=== PATIENT | female | born 1995 | race Caucasian/White ===

== ENCOUNTER 2017-04-29 19:58 | Emergency (ER) | payer OTHER ==
[2017-04-29 20:04] VITALS: BP 103/54; PULSE 115; BMI 27.6
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
[2017-04-29 22:33] LABS: HIV 1 & 2 AB NEGATIVE; HIV 1 AGp24 NEGATIVE
[2017-05-04 00:12] LABS: HEP B SURFACE AB Reactive (.)
== END 2017-04-29 22:55 ==
LOC: JERFT 19:58
DX: F91.1 Conduct disorder, childhood-onset type (principal); G40.509 Epileptic seizures related to external causes, not intractable, without status epilepticus; F73 Profound intellectual disabilities
CPT/HCPCS: 36415; 86704; 86706; 86708; 86803; 87340; 87389; 99281-25

== ENCOUNTER 2017-09-25 17:37 | Emergency (ER) | payer OTHER ==
[2017-09-25 17:45] VITALS: BMI 29.9
--- NOTE | 2017-09-25 19:14 | PDOC ---
History of Present Illness - General History Source: Care Provider Exam Limitations: Other (nonverbal, autistic) - History of Present Illness Initial Comments: 09/25/17 19:40 The patient is a 22 year old female, with a significant past medical history of intellectual delay, autism, aggression, seizure disorder, who presents to the emergency department with caregiver via ems from [facility] for evaluation of bilateral lower extremity swelling today and a 3 pound weight gain in 10 days. The patient is unable to provide history. PCP: Dr. Mckeon <Azeb Chavez - Last Filed: 09/25/17 19:39> <Sarah Craig - Last Filed: 09/25/17 21:20> - General Chief Complaint: Edema Stated Complaint: ALLERGIC REACTION Time Seen by Provider: 09/25/17 17:51 Past History <Azeb Chavez - Last Filed: 09/25/17 19:39> - Past Medical History COPD: No Diabetes: Yes Psychiatric Problems: No (INTELLECTUAL DISABLED,aggression) Seizures: Yes Thyroid Disease: Yes - Immunization History Immunization Up to Date: Yes - Suicide/Smoking/Psychosocial Hx Smoking History: Never smoked Have you smoked in the past 12 months: No Information on smoking cessation initiated: No Hx Alcohol Use: No Drug/Substance Use Hx: No Substance Use Type: None <Sarah Craig - Last Filed: 09/25/17 21:20> - Past Medical History Allergies/Adverse Reactions: Allergies Allergy/AdvReac Type Severity Reaction Status Date / Time Penicillins Allergy Verified 09/25/17 17:41 Home Medications: Ambulatory Orders Acetaminophen 650 mg PO Q4HWA PRN 09/25/17 Cholecalciferol (Vitamin D3) [Vitamin D3] 2,000 unit PO DAILY 09/25/17 Divalproex [Depakote -] 125 mg PO BID 09/25/17 Docusate Sodium 100 mg PO TID 09/25/17 Fluticasone Prop 0.05% Nasal [Flonase -] 1 - 2 spray NS BID 09/25/17 Ibuprofen [Motrin -] 400 mg PO TID PRN 09/25/17 Levothyroxine [Synthroid -] 75 mcg PO DAILY 09/25/17 [place] Carbonate [Eskalith -] 300 mg PO TID 09/25/17 Loperamide HCl [Loperamide] 2 mg PO Q4HWA PRN MDD 2 09/25/17 Multivitamin [One Daily] 1 each PO DAILY 09/25/17 Omeprazole 20 mg PO BID 09/25/17 Polyethylene Glycol 3350 [Clearlax] 17 gm PO TID 09/25/17 Quetiapine Fumarate "Xr" [Seroquel Xr -] 400 mg PO DAILY 09/25/17 Quetiapine Fumarate [Seroquel -] 200 mg PO DAILY 09/25/17 Sennosides [Ex-Lax] 2 tab PO ASDIR PRN 09/25/17 Review of Systems - Review of Systems Able to Perform ROS?: No (as per residential notes) <Azeb Chavez - Last Filed: 09/25/17 19:39> *Physical Exam - Vital Signs Last Vital Signs Temp Pulse Resp BP Pulse Ox 98.3 F 107 H 18 112/73 100 09/25/17 17:42 09/25/17 17:42 09/25/17 17:42 09/25/17 17:42 09/25/17 17:42 - Physical Exam Comments: 09/25/17 19:40 GENERAL: (+) nonverbal, calm. well nourished. Awake and alert. No acute distress. HEENT: (+) Dry mucous membranes. Normocephalic, atraumatic. PERRLA, EOMI. No conjunctival pallor. Sclera are non-icteric. Oropharynx is clear. NECK: Supple. Full ROM. No JVD. Carotid pulses 2+ and symmetric, without bruits. No thyromegaly. No lymphadenopathy. CARDIOVASCULAR: Regular rate and rhythm. No murmurs, rubs, or gallops. Distal pulses are 2+ and symmetric. PULMONARY: No evidence of respiratory distress. Lungs clear to auscultation bilaterally. No wheezing, rales or rhonchi. ABDOMINAL: Soft. Non-tender. Non-distended. No rebound or guarding. No organomegaly. Normoactive bowel sounds. MUSCULOSKELETAL Normal range of motion at all joints. No bony deformities or tenderness. No CVA tenderness. EXTREMITIES: (+) non-pitting edema to bilateral lower extremities. No cyanosis. No clubbing. No calf tenderness. SKIN: Warm and dry. Normal capillary refill. No rashes. No jaundice. NEUROLOGICAL: Alert, awake, appropriate. Cranial nerves 2-12 intact. Normoreflexic in the upper and lower extremities. Normal speech. Toes are down-going bilaterally. Gait is normal without ataxia. PSYCHIATRIC: Cooperative. <Azeb Chavez - Last Filed: 09/25/17 19:39> - Vital Signs Last Vital Signs Temp Pulse Resp BP Pulse Ox 98.3 F 107 H 18 112/73 100 09/25/17 17:42 09/25/17 17:42 09/25/17 17:42 09/25/17 17:42 09/25/17 17:42 <Sarah Craig - Last Filed: 09/25/17 21:20> ED Treatment Course - LABORATORY CBC & Chemistry Diagram: 09/25/17 19:23 09/25/17 19:23 <Sarah Craig - Last Filed: 09/25/17 21:20> Medical Decision Making - Medical Decision Making 09/25/17 19:15 -year-old female from residential facility for unclear brought in by charge nurse for bilateral swelling to her legs. No from the home states she's also had a 3 pound weight gain lately. She has no fever, no vomiting, no coughing 22-year-old female with bilateral nonpitting edema to her legs, clear lungs, CVS is regular rate and rhythm, nontender abdomen <Sarah Craig - Last Filed: 09/25/17 21:20> *DC/Admit/Observation/Transfer - Attestations Scribe Attestion: 09/25/17 19:43 Documentation prepared by Azeb Chavez, acting as medical research assistant for Sarah Carig MD <Azeb Chavez - Last Filed: 09/25/17 19:39> <Sarah Craig - Last Filed: 09/25/17 21:20> Diagnosis at time of Disposition: Lower extremity edema - Discharge Dispostion Disposition: HOME Condition at time of disposition: Stable - Patient Instructions Printed Discharge Instructions: DI for Peripheral Edema -- Bilateral Additional Instructions: please followup with Dr Mckeon
[2017-09-25 20:05] LABS: BASO % 0.7 % (0-2.0); HEMATOCRIT 37.2 % (32.4-45.2); HEMOGLOBIN 12.7 GM/dL (10.7-15.3); LYMPH % 25.3 % (8-40); MCH 31.9 pg (25.7-33.7); MEAN CELL VOLUME 93.8 fl (80-96); MEAN PLT VOLUME 7.9 fl (7.5-11.1); MONO % 11.3 % (3.8-10.2); NEUT % 60.7 % (42.8-82.8); PLATELET COUNT 261 K/MM3 (134-434); RBC 3.97 M/mm3 (3.60-5.2); RDW 12.5 % (11.6-15.6); WHITE BLOOD COUNT 9.9 K/mm3 (4.0-10.0)
[2017-09-25 20:37] LABS: ALBUMIN 3.8 g/dl (3.4-5.0); ANION GAP 9 (8-16); BILIRUBIN,TOTAL 0.2 mg/dL (0.2-1.0); BLOOD UREA NITROGEN 13 mg/dL (7-18); CALCIUM 9.1 mg/dL (8.5-10.1); CHLORIDE 105 mmol/L (98-107); CO2 25 mmol/L (21-32); CREATININE 0.5 mg/dL (0.55-1.02); GLUCOSE,RANDOM 93 mg/dL (74-106); POTASSIUM 4.5 mmol/L (3.5-5.1); SGOT/AST 16 U/L (15-37); SGPT/ALT 24 U/L (12-78); SODIUM 139 mmol/L (136-145); TOT PROT 7.2 g/dl (6.4-8.2)
[2017-09-25 20:38] LABS: ALK PHOS 93 U/L (45-117)
[2017-09-25 21:03] LABS: URINE APPEARANCE CLEAR; URINE BILIRUBIN NEGATIVE (NEGATIVE); URINE BLOOD NEGATIVE (NEGATIVE); URINE COLOR STRAW; URINE GLUCOSE (UA) NEGATIVE (NEGATIVE); URINE KETONE NEGATIVE (NEGATIVE); URINE LEUK ESTERASE NEGATIVE (NEGATIVE); URINE NITRITE NEGATIVE (NEGATIVE); URINE PROTEIN NEGATIVE (NEGATIVE); URINE UROBILINOGEN NEGATIVE mg/dL (0.2-1.0)
[2017-09-25 21:21] VITALS: BP 102/66; PULSE 106; TEMP 98.1
--- NOTE | 2017-09-28 11:01 | EKG ---
Test Reason : Blood Pressure : / mmHG Vent. Rate : 097 BPM Atrial Rate : 097 BPM P-R Int : 156 ms QRS Dur : 080 ms QT Int : 352 ms P-R-T Axes : 034 027 035 degrees QTc Int : 447 ms NORMAL SINUS RHYTHM CANNOT RULE OUT ANTERIOR INFARCT , AGE UNDETERMINED ABNORMAL ECG NO PREVIOUS ECGS AVAILABLE Confirmed by GENA SILVA MD ([id number]) on 09/28/2017 11:01:14 AM Referred By: Confirmed By:GENA SILVA MD
== END 2017-09-25 21:40 | disposition home or self-care (01) ==
LOC: JER 17:37
DX: R60.0 Localized edema (principal); G40.509 Epileptic seizures related to external causes, not intractable, without status epilepticus; F84.0 Autistic disorder; G40.909 Epilepsy, unspecified, not intractable, without status epilepticus; F91.1 Conduct disorder, childhood-onset type
CPT/HCPCS: 36415; 80053; 81003; 85025; 93005; 93010; 93970-TC; 99282-25